=== PATIENT | male | born 1990 | race Two or more races ===

== ENCOUNTER 2022-06-26 14:26 | Inpatient (IN) | payer BC ==
[~2022-06-26] VITALS: Ht 175.3 cm; Wt 65.8 kg
[2022-06-26 15:21] LABS: BASOPHILS % 0.4 % (0.0-2.0); EOSINOPHILS % 0.3 % (0.0-5.0); HEMATOCRIT. 44.2 % (42.0-52.0); HEMOGLOBIN. 14.8 g/dL (14.0-18.0); LYMPHOCYTES % 15.3 % (20.0-50.0); MEAN CORPUSCULAR HEMOGLOBIN 29.3 pg (28.0-32.0); MEAN CORPUSCULAR VOLUME 87.7 fL (80.0-94.0); MEAN PLATELET VOLUME 8.6 fl (7.4-10.4); MONOCYTES % 6.8 % (2.0-8.0); NEUTROPHILS % 77.2 % (40.0-76.0); PLATELET 228 x1000/uL (130-400); RED BLOOD CELL COUNT 5.04 mill/uL (4.7-6.1); RED CELL DISTRIBUTION WIDTH 13.1 % (11.6-14.6)
[2022-06-26 15:33] LABS: CHLORIDE 111 mEq/L (98-107)
[2022-06-26 15:46] LABS: ETHANOL BLOOD < 10 mg/dL
[2022-06-27] MEDS ORDERED: IPRATROPIUM/ALBUTEROL 0.5-3(2.5)MG/3ML NEB HHN PRN (02:45)
[2022-06-27] MEDS ORDERED: ONDANSETRON HCL 4MG/2ML INJ IV PRN (02:45)
[2022-06-27] MEDS ORDERED: IPRATROPIUM BROMIDE (0.02%) 0.5MG/2.5ML NEB HHN PRN (02:45)
[2022-06-27] MEDS ORDERED: ACETAMINOPHEN 325MG TABLET PO PRN (02:45)
[2022-06-27] MEDS ORDERED: MORPHINE SULFATE 2 MG/ML CPJ (NOT FOR IM USE) IV PRN (02:45)
[2022-06-27] MEDS ORDERED: CLONIDINE 0.1MG TABLET PO PRN (02:45)
[2022-06-27] MEDS ORDERED: ALBUTEROL (0.083%) 2.5MG/3ML NEB HHN PRN (02:45)
[2022-06-27] MEDS ORDERED: DIPHENHYDRAMINE 50MG/ML VIAL IV PRN (02:45)
[2022-06-27 12:00] VITALS: BP 114/77
[2022-06-27 15:28] VITALS: BP 125/91
[2022-06-27 16:00] VITALS: BP 122/53
[2022-06-27 19:45] LABS: HEPATITIS B SURFACE ANTIGEN NEGATIVE
[2022-06-27 20:00] VITALS: BP 112/73
[2022-06-27] MEDS ORDERED: NALOXONE HCL 0.4MG/ML VIAL IV PRN (20:15)
[2022-06-28] VITALS: BP 106/63
[2022-06-28 07:03] LABS: BASOPHILS % 1.2 % (0.0-2.0); EOSINOPHILS % 2.7 % (0.0-5.0); HEMATOCRIT. 41.5 % (42.0-52.0); HEMOGLOBIN. 13.8 g/dL (14.0-18.0); LYMPHOCYTES % 33.8 % (20.0-50.0); MEAN CORPUSCULAR HEMOGLOBIN 29.3 pg (28.0-32.0); MONOCYTES % 9.8 % (2.0-8.0); NEUTROPHILS % 52.5 % (40.0-76.0); PLATELET 203 x1000/uL (130-400); RED BLOOD CELL COUNT 4.71 mill/uL (4.7-6.1)
[2022-06-28 08:00] VITALS: BP 117/75
[2022-06-28 08:41] LABS: CHLORIDE 109 mEq/L (98-107)
[2022-06-28 12:00] VITALS: BP 109/60
[2022-06-28] MEDS ORDERED: CYCL5TAB MT (12:33)
[2022-06-28 16:00] VITALS: BP 106/59
[2022-06-28 17:56] VITALS: BP 105/59
[2022-06-28 20:40] LABS: *AMPHETAMINES SCREEN URINE NEGATIVE (NEGATIVE); *BARBITURATES SCREEN URINE NEGATIVE (NEGATIVE); *BENZODIAZEPINES SCREEN URINE NEGATIVE (NEGATIVE); *COCAINE SCREEN URINE NEGATIVE (NEGATIVE); CANNABINOID URINE SCREEN NEGATIVE (NEGATIVE); METHADONE URINE SCREEN NEGATIVE (NEGATIVE); OPIATES URINE SCREEN PRESUMTIVE POSITIVE (NEGATIVE); PHENCYCLIDINE URINE SCREEN NEGATIVE (NEGATIVE)
== END 2022-06-28 18:47 | disposition home or self-care (01) | DRG 206 ==
LOC: ER 14:26 → 7EST 06-27 01:56 → EDBEDREQ 06-27 01:59 → EDBEDREQTM 06-27 01:59
PROVIDERS: ADMIT Family Medicine Adult Medicine; ATTEND Family Medicine Adult Medicine
DX: M94.0 Chondrocostal junction syndrome [Tietze] (principal); F41.1 Generalized anxiety disorder; G93.0 Cerebral cysts
CPT/HCPCS: 36415; 71045; 80053; 80305; 80320; 82962; 83880; 84484; 85025; 86803; 87340; 93005; 93306; 93970; 99285; J2270; G0480